=== PATIENT | female | born 1950 | race Caucasian/White ===

== ENCOUNTER 2016-09-24 21:23 | Emergency (ER) | payer OTHER ==
[2016-09-24 21:45] VITALS: BP 150/85; PULSE 73; TEMP 98; BMI 34.4
[2016-09-24] MEDS ORDERED: IBUPROFEN 400 MG TABLET (FP) PO ONE (22:02)
--- NOTE | 2016-09-24 22:07 | PDOC ---
History of Present Illness - General Chief Complaint: Injury Stated Complaint: FALL/INJURY Time Seen by Provider: 09/24/16 21:52 History Source: Patient - History of Present Illness Occurred: reports: just prior to arrival Upper Extremity Pain Location: left: wrist Method of Injury: reports: fell Past History - Past Medical History Allergies/Adverse Reactions: Allergies Allergy/AdvReac Type Severity Reaction Status Date / Time No Known Allergies Allergy Verified 09/24/16 21:41 Home Medications: Ambulatory Orders Ibuprofen [Motrin -] 800 mg PO Q6H #30 tablet 09/24/16 Lisinopril 10 mg PO DAILY 09/24/16 Omeprazole Magnesium [Prilosec] 40 mg PO DAILY 09/24/16 HTN: Yes - Surgical History Appendectomy: Yes - Psycho/Social/Smoking Cessation Hx Suicidal Ideation: No Smoking History: Never smoked Hx Alcohol Use: No Drug/Substance Use Hx: No Review of Systems - Review of Systems Musculoskeletal: Yes: Joint Pain, Joint Swelling *Physical Exam - Vital Signs Last Vital Signs Temp Pulse Resp BP Pulse Ox 98 F 73 18 150/85 97 09/24/16 21:42 09/24/16 21:42 09/24/16 21:42 09/24/16 21:42 09/24/16 21:42 - Physical Exam General Appearance: Yes: Appropriately Dressed, Mild Distress HEENT: positive: Normal Voice Neck: positive: Supple Respiratory/Chest: negative: Respiratory Distress Extremity: positive: Other (+defomity to L wrist, NVI) Integumentary: positive: Dry, Warm Neurologic: positive: Fully Oriented, Alert, Normal Mood/Affect Procedures - Splinting Splint Location: Left: Wrist Hand-Made Type: orthoglass Splint Type: Yes: Sugar Tong Post-Proc Neuro Vasc Exam: normal [place] Bandage: yes, 3", 4" Sling: Yes ED Treatment Course - RADIOLOGY Radiology Studies Ordered: Category Date Time Status WRIST W/HAND-LEFT* [RAD] Stat Radiology 09/24/16 21:51 Taken Medical Decision Making - Medical Decision Making 09/24/16 22:05 66 yo female, p/w left wrist pain and deformity s/p fall in her kitchen tonight after she slipped. Denies hitting head and reports no other injuries. Has minimally displaced fx on XR. Hematoma block performed and sugar tong splint placed. Pt discharged w/ sling and orthopedic f/u *DC/Admit/Observation/Transfer Diagnosis at time of Disposition: Wrist fracture Qualifiers: Encounter type: initial encounter Fracture type: closed Laterality: left Qualified Code(s): S62.102A - Fracture of unspecified carpal bone, left wrist, initial encounter for closed fracture - Discharge Dispostion Disposition: HOME Condition at time of disposition: Improved - Prescriptions Prescriptions: Ibuprofen [Motrin -] 800 mg PO Q6H #30 tablet - Referrals Referrals: Lyle Guzman MD [Staff Physician] - - Patient Instructions Printed Discharge Instructions: Wrist Fracture Additional Instructions: Please follow up with orthopedics in 1 week
== END 2016-09-24 22:52 | disposition home or self-care (01) ==
LOC: JERFT 21:23
PROC: 2W3FX1Z Immobilization of Left Hand using Splint (ICD-10-PCS; principal; 2016-09-24)
DX: M21.932 Unspecified acquired deformity of left forearm (principal); S52.502A Unspecified fracture of the lower end of left radius, initial encounter for closed fracture; W18.39XA Other fall on same level, initial encounter; Y93.9 Activity, unspecified; Y92.000 Kitchen of unspecified non-institutional (private) residence as the place of occurrence of the external cause; I10 Essential (primary) hypertension
CPT/HCPCS: 73110-TC-LT; 73130-TC-LT; 99281-25

== ENCOUNTER 2016-10-01 09:00 | Day surgery (SDC) | payer OTHER ==
[2016-09-30 14:43] VITALS: BMI 34.5
[2016-10-01] MEDS ORDERED: BUPIVACAINE HCL/PF 0.5% (5MG/ML) 10 ML VIAL ONE (11:13)
[2016-10-01] MEDS ORDERED: DEXAMETHASONE SOD PHOSPHATE/PF 10 MG/ML SDV ONE (11:14)
[2016-10-01] MEDS ORDERED: MIDAZOLAM HCL 2 MG/2 ML SINGLE DOSE VIAL ONE (11:15)
[2016-10-01] MEDS ORDERED: PROPOFOL 20 ML ONE ×2 (12:48)
[2016-10-01] MEDS ORDERED: ceFAZolin SODIUM 1 GM VIAL ONE (12:53)
[2016-10-01] MEDS ORDERED: ONDANSETRON 4 MG/2 ML VIAL ONE (13:00)
--- NOTE | 2016-10-01 14:27 | OP ---
Operative Note - Note: Operative Date: 10/01/16 Pre-Operative Diagnosis: left distal radius fracture Operation: open reduction, internal fixation of left distal radius Implants: accumed locking plate Post-Operative Diagnosis: Same as Pre-op Surgeon: Demetris Ortiz Clinical Quality Assurance Specialist: Mj Rodriguez Anesthesia: Fractional Estimated Blood Loss (mls): 20 Operative Report Dictated: Yes
[2016-10-01 14:39] VITALS: TEMP 98.5
[2016-10-01 15:11] VITALS: BP 152/87; PULSE 80
--- NOTE | 2016-10-02 09:08 | OP ---
DATE OF OPERATION: 10/01/2016 PREOPERATIVE DIAGNOSIS: Left distal radius fracture. POSTOPERATIVE DIAGNOSIS: Left distal radius fracture. PROCEDURE: Left distal radius open reduction, internal fixation. SURGEON: Demetris Ortiz MD REROLLING MACHINE OPERATOR: Mj Rodriguez PA-C, MARVA whose skillful assistance was necessary for the safe and timely performance of this procedure. Mr. Rodriguez was able to provide retraction, assist in the reduction of the fracture, stabilization of the fracture, and insertion of orthopedic hardware. TOURNIQUET TIME: 50 minutes. POSTOPERATIVE CONDITION: Stable. COMPLICATIONS: None. IMPLANTS: Acumed distal radius plate with associated locking and nonlocking screws and pegs. INDICATIONS: This is a pleasant 66-year-old female who suffered a distal radius fracture after a trip and fall. She was initially treated with closed reduction and casting. However, her cast was poorly tolerated and after discussion of treatment options the patient elected for open reduction, internal fixation. Prior to surgery, the risks, benefits, and alternatives to surgery were discussed in detail with the patient, including bleeding, infection, neurovascular injury, need for further surgery, postoperative pain and stiffness, nonunion, malunion, hardware cutout or failure. We discussed medical risks such as heart attack, stroke, DVT, PE, and . The patient voiced understanding and elected to proceed. PROCEDURE: The patient was brought to the operating room after the administration of a regional block in the preoperative holding area. The left upper extremity was then prepped and draped in the usual sterile fashion. A preoperative dose of antibiotics was given, and the usual timeout procedure was performed. At this point, an incision was planned out over the FCR tendon. The limb was now elevated, and the tourniquet was inflated to 250 mmHg. The incision was now carried down through skin to subcutaneous tissue. Blunt spreading was used to expose the FCR tendon sheath. This was then split in line with its fibers, and the FCR was mobilized ulnarly. The fascia over the brachial radialis was now incised again in line with its fibers, and the brachial radialis was mobilized radially. This exposed the pronator which already had a rent in it from the fracture itself. Utilizing this, the remainder of the pronator was elevated ulnarly to expose the radial fracture. The fracture was debrided of any loose material. A reduction was then effected manually. A K-wire was placed through the radial styloid into the shaft of the radius to maintain the reduction temporarily. A plate was now chosen and affixed to the bone initially using a K-wire. A 3.5-mm cortical screw was then placed in the oblong hole, and final adjustments in plate placement were made. Fluoroscopy was used to confirm both hardware placement and fracture reduction, and both were satisfactory. The plate was now affixed distally utilizing the locking pegs. The 3 distal locking holes were drilled using the locking guide. Then, pegs were measured and inserted. Two additional pegs were inserted into the radial styloid fragment. The 2 additional shaft screws were then drilled with 2.5 drill bit and 3.5-mm screws were inserted to secure the plate to the bone. The entire construct at this point was examined both visually and fluoroscopically. Both fracture reduction and hardware placement were satisfactory. The wound was copiously irrigated. The pronator was reapproximated using 2-0 Vicryl. The subcutaneous tissue was approximated using 3-0 Vicryl. The skin was closed using a running 4-0 Biosyn. The wound was then sealed with Dermabond. The patient was placed into a short-arm splint. The tourniquet was let down. The patient was transferred to the recovery room in stable condition. Jovanna FRIEDMAN/[id number]
== END 2016-10-01 15:15 | disposition home or self-care (01) ==
LOC: FASU 09:00
PROVIDERS: ATTEND Orthopaedic Surgery Sports Medicine
PROC: 0PSJ04Z Reposition Left Radius with Internal Fixation Device, Open Approach (ICD-10-PCS; principal; 2016-10-01 13:09)
DX: S52.532A Colles' fracture of left radius, initial encounter for closed fracture (principal); X58.XXXA Exposure to other specified factors, initial encounter; Y93.9 Activity, unspecified; Y92.9 Unspecified place or not applicable
CPT/HCPCS: 73110-TC-LT

== ENCOUNTER 2020-08-10 15:04 | Emergency (ER) | payer OTHER | END 2020-08-10 17:12 | disposition home or self-care (01) | LOC: JVIRT 15:04 | DX: U07.1 COVID-19 (principal) | CPT/HCPCS: C9803; G2012-GT; U0003 ==

== ENCOUNTER 2023-03-24 09:35 | Emergency (ER) | payer OTHER ==
[2023-03-24 09:48] VITALS: BP 176/64; PULSE 79; RESP 12; TEMP 97.3; BMI 37.5
[2023-03-24] MEDS ORDERED: ACETAMINOPHEN 325 MG TABLET (FP) PO ONE (10:44)
[2023-03-24] MEDS ORDERED: ACETAMINOPHEN 325 MG TABLET (FP) ONE (10:48)
== END 2023-03-24 11:25 | disposition home or self-care (01) ==
LOC: JERFT 09:35
DX: M25.561 Pain in right knee (principal)
CPT/HCPCS: 73564-TC-RT-FY; 99283-25